=== PATIENT | male | born 1965 | race African-American/Black ===

== ENCOUNTER 2021-07-15 03:17 | Emergency (ER) | payer OTHER ==
[~2021-07-15] VITALS: Ht 185.4 cm; Wt 77.1 kg
--- NOTE | ~2021-07-15 | EMS ---
[address] [address] EMS Patient Care Report Name: JOYCE IYER Room #: DEP PAULA Flores#: [id number] Admission: 07/15/21 Attend Phys: Discharge: 07/15/21 Date of : 61 Report #: [id number] THIS REPORT FOR: //name// Report Transmitted: 07/16/2021 10:26 EMS Care Summary [place], [place]/[facility] Incident [phone] @ 07/15/2021 02:50 Incident Location [address] [place] [address] Patient JOYCE IYER Male, 56 Years 1965 Patient Address Patient History Liver Failure, Patient Allergies No known allergies, Patient Medications Unknown, Chief Complaint ASCITES AND PEDAL EDEMA Disposition Transported No Lights/[place] Dispatch Reason Abdominal Pain/Problems Transported To [facility] Narrative UPON ARRIVAL WE FOUND OUR 56 YEAR OLD MALE PATIENT, WITH A HX OF LIVER FAILURE, SITTING IN THE LOBBY AT THE [facility] COMPLAINING OF INCREASED ASCITES AND PEDAL EDEMA. THE PATIENT STATES HE HAS NOT BEEN ABLE TO GET HIS MEDS OR A PARACENTESIS DUE TO INS ISSUES. THE PATIENT REQUESTS TRANSPORT TO [facility] FOR EVALUATION. [address] [address] EMS Patient Care Report Name: JOYCE IYER Room #: DEP ER Sandar#: [id number] Admission: 07/15/21 Attend Phys: Discharge: 07/15/21 Date of : 61 Report #: [id number] Initial Vitals @02:59P: 109,R: 18,BP: 140/80,Pain: 4/10,GCS: 15,CO: 3,SpO2: 98,Revised Trauma: 12, @03:10P: 96,R: 18,BP: 144/80,Pain: 4/10,GCS: 15,SpO2: 99,Revised Trauma: 12, Assessments @02:57MENTAL:Place Oriented,Person Oriented,Event Oriented,Time Oriented,SKIN:HEENT:Eyes: Right Pupil: 4-mm,Eyes: Left Pupil: 4-mm,Head/Face: No Abnormalities,Neck/Airway: No Abnormalities,LUNG SOUNDS:Right Lower: Distension,Right Upper: Distension,Left Lower: Distension,Left Upper: Distension,General: No Abnormalities,ABDOMEN:Right Lower: Distension,Right Upper: Distension,Left Lower: Distension,Left Upper: Distension,General: No Abnormalities,PELVIS//GI:No Abnormalities,EXTREMITIES:Left Arm: No Abnormalities,Right Arm: No Abnormalities,Left Leg: No Abnormalities,Right Leg: No Abnormalities,PULSE:Radial: 2+ Normal,NEURO:No Abnormalities, Impression Edema Procedures @02:57 ALS Assessment Response: UnchangedSucceeded Timeline 02:48,Call Received 02:48,Dispatch Notified 02:50,Dispatched 02:52,En Route 02:56,On Scene 02:57,At Patient 02:57,ALS Assessment,Response: UnchangedSucceeded, 02:59,BP: 140/80 M,PULSE: 109,RR: 18 R,SPO2: 98 Ox,ETCO2: ,BG: ,PAIN: 4,GCS: 15, 03:00,Depart Scene 03:08,At Destination 03:10,BP: 144/80 M,PULSE: 96,RR: 18 R,SPO2: 99 Ox,ETCO2: ,BG: ,PAIN: 4,GCS: 15, 03:24,Call Closed Disclaimer [email or web address] Copyright 2021 [employer] This EMS Care Summary contains data elements from the applicable legal record (which may be displayed differently). It is designed to provide pertinent information for the following purposes: continuity of care, clinical quality, and state data reporting. The complete legal record is available to ED staff and administrators of the receiving hospital in [employer]'s Patient Tracker. All data is provided "as is."
[2021-07-15 03:27] VITALS: BP 128/87
== END 2021-07-15 05:11 | disposition home or self-care (01) ==
LOC: ER 03:17
DX: R18.8 Other ascites (principal); K74.60 Unspecified cirrhosis of liver